=== PATIENT | female | born 1940 | race Caucasian/White ===

== ENCOUNTER 2018-07-20 11:14 | Emergency (ER) | payer MEDICARE ==
[~2018-07-20] VITALS: Ht 162.6 cm; Wt 72.7 kg
[~2018-07-20 11:14] MED LIST: ACIDOPHILUS PO; ADULT ASPIRIN E81 MG PO; BONIVA150 MG OR; CENTRUM SILVER PO; CIPROFLOXACN500 MG PO; CITRACA1 PO; COQ-10400 MG; CYANOCOBAL1000 MCG/M IM; DETROL LA4 MG OR; ESTRACE VAG0.1 MG/GM VA; EYE VITAMINS PO; IBANDRONATE3 MG/3 ML IM; MAGNESIUM500 M3 PO; OMEGA-3 FIS1 PO; PROLIA60 MG/ML SC; SERTRALINE50 MG OR; ULTRAM50 MG OR; VENLAFAXINE H37.5 MG PO; VENLAFAXINE37.5 M2 PO
[2018-07-20 11:46] LABS: URINE BILIRUBIN - DIPSTICK NEGATIVE (NEGATIVE); URINE BLOOD DIPSTICK SMALL (NEGATIVE); URINE COLOR YELLOW; URINE GLUCOSE - DIPSTICK NEGATIVE (NEGATIVE); URINE KETONE NEGATIVE (NEGATIVE); URINE NITRITE - DIPSTICK NEGATIVE (Negative); URINE PROTEIN - DIPSTICK NEGATIVE (NEG-TRACE); URINE SPECIFIC GRAVITY <=1.005; URINE UROBILINOGEN - DIPSTICK 0.2 E.U./dL (0.2)
[2018-07-20 12:15] LABS: URINE LEUK ESTERASE MODERATE (NEGATIVE)
[2018-07-20 12:23] LABS: URINE BACTERIA MANY hpf; URINE SQUAMOUS EPITHELIAL CELL FEW EPI/hpf (0-FEW); URINE WBC TNTC WBC/hpf (0-5)
[2018-07-20] MEDS ORDERED: KEFLEX500 M1 PO (12:26)
[2018-07-20] MEDS ORDERED: PYRIDIUM200 MG PO (12:26)
[2018-07-20 12:35] VITALS: BP 143/88
[2018-07-20] MEDS ORDERED: EFFEXOR75 MG PO (12:36)
[2018-07-20] MEDS ORDERED: ASPIRIN 8181 MG PO (12:37)
[2018-07-20] MEDS ORDERED: CELECOXIB200 MG PO (12:37)
[2018-07-20] MEDS ORDERED: FUROSEMIDE20 MG PO (12:37)
== END 2018-07-20 12:35 | disposition home or self-care (01) ==
LOC: ED 11:14
DX: N39.0 Urinary tract infection, site not specified (principal); B96.20 Unspecified Escherichia coli [E. coli] as the cause of diseases classified elsewhere